=== PATIENT | male | born 1995 | race Caucasian/White ===

== ENCOUNTER 2019-01-01 09:21 | Emergency (ER) | payer BC ==
[~2019-01-01] VITALS: Ht 154.9 cm; Wt 86.2 kg
[2019-01-01] MEDS ORDERED: Augmentin 875-1 EACH PO (10:22)
[2019-01-01] MEDS ORDERED: Cleocin HCl150 MG PO (14:33)
[2019-01-01] MEDS ORDERED: Ultram50 MG PO (14:33)
== END 2019-01-01 15:36 | disposition home or self-care (01) ==
LOC: ER 09:21
DX: K04.7 Periapical abscess without sinus (principal); Z88.8 Allergy status to other drugs, medicaments and biological substances
CPT/HCPCS: 41800; 70487; 96365-59; 96375-59; 99284-25; J2060; J2405; J3010; Q9967